=== PATIENT | male | born 1950 | race Caucasian/White ===

== ENCOUNTER 2016-12-12 07:59 | Observation (INO) | payer BC ==
[2016-12-12] MEDS ORDERED: Aspirin Low Dose CHEW TAB* 81 MG PO ONE (08:15)
[2016-12-12 08:44] LABS: Hematocrit 50 % (42-52); Hemoglobin 16.8 g/dl (14.0-18.0); Mean Corpuscular HGB Conc 34 g/dl (31-36); Mean Corpuscular Hemoglobin 30 pg (27-31); Mean Corpuscular Volume 89 fL (80-94); Mean Platelet Volume 9 um3 (7.4-10.4); Red Cell Distribution Width 14 % (10.5-15); White Blood Count 7.6 10^3/ul (3.5-10.8)
[2016-12-12 08:51] LABS: Add Diff/Slide Review? Slide Review Added; Comments Flag Yes
[2016-12-12 09:01] LABS: Albumin 4.3 g/dL (3.2-5.2); BUN/Creatinine Ratio 13.8 (8-20); Calcium 9.8 mg/dL (8.6-10.3); EGFR African American 103.6 (>60); EGFR Non-African American 80.5 (>60); Potassium 3.5 mmol/L (3.5-5.0); Total Bilirubin 0.5 mg/dL (0.2-1.0); Total Protein 7.3 g/dL (6.4-8.9)
--- NOTE | 2016-12-12 09:01 | RAD ---
INDICATION: Chest pain. COMPARISON: Comparison is made with prior chest x-ray study from April 02, 2015. TECHNIQUE: A portable view of the chest was obtained. FINDINGS: Cardiac and mediastinal contours appear to be within normal limits. The lungs are clear. No pleural effusion is seen. IMPRESSION: NO EVIDENCE FOR ACUTE DISEASE.
[2016-12-12] MEDS ORDERED: Acetaminophen TAB* 325 MG PO PRN (12:31)
[2016-12-12] MEDS ORDERED: Nicotine Inhaler* 10 MG AMP INH PRN (12:31)
[2016-12-12] MEDS ORDERED: Heparin VIAL(*) 5000 UNITS/ML VIAL (FIVE THOUSAND) SUBCUT SCH (14:00)
--- NOTE | 2016-12-12 14:38 | ED ---
Brandon Ricketts Matthew, scribed for Jonathan Higuera MD on 12/12/16 at 0854 . HPI Chest Pain - HPI Summary HPI Summary: A 66 y/o male presents to the ED with intermittent left sided chest pain since two days ago. The pain lasts for a few seconds then subsides. The pain is currently rated 0 in severity, does not radiate, and is described as dull. The pain is unaffected by movement. He denies back pain, numbness/tingling, SOB, and diaphoresis. He has a Hx of Atrial Flutter. He denies any associated symptoms. The patient states that he couldn't sleep last night due to anxiety. - History of Current Complaint Chief Complaint: EDChestPainROMI Time Seen by Provider: 12/12/16 08:15 Hx Obtained From: Patient Onset/Duration: Started Days Ago, Atraumatic, Resolved Timing: Intermittent, Lasting Seconds Initial Severity: Moderate Current Severity: None Pain Intensity: 0 Pain Scale Used: 0-10 Numeric Chest Pain Location: Left Lateral Chest Pain Radiates: No Character: Dull/Aching Aggravating Factor(s): Nothing Alleviating Factor(s): Spontaneous Resolution Associated Signs and Symptoms: Positive: Chest Pain. Negative: Numbness, Tingling, Shortness of Breath, Diaphoresis - Allergy/Home Medications Allergies/Adverse Reactions: Allergies Allergy/AdvReac Type Severity Reaction Status Date / Time No Known Allergies Allergy Verified 04/02/15 21:59 PMH/Surg Hx/FS Hx/Imm Hx Cardiovascular History: Reports: Hx Hypercholesterolemia, Hx Hypertension, Other Cardiovascular Problems/Disorders - Hx of Atrial Flutter Infectious Disease History: No Infectious Disease History: Denies: Traveled Outside the [place] in Last 30 Days - Family History Known Family History: Positive: Cardiac Disease - Social History Alcohol Use: None Substance Use Type: Reports: None Smoking Status (MU): Current Every Day Smoker Review of Systems Constitutional: Negative Negative: Fever, Chills, Skin Diaphoresis Eyes: Negative Negative: Erythema ENT: Negative Negative: Sore Throat Positive: Chest Pain Respiratory: Negative Negative: Shortness Of Breath Gastrointestinal: Negative Negative: Abdominal Pain, Vomiting, Nausea Genitourinary: Negative Negative: dysuria, hematuria Musculoskeletal: Negative Negative: Myalgia, Edema Skin: Negative Negative: Rash Neurological: Negative Psychological: Normal All Other Systems Reviewed And Are Negative: Yes Physical Exam Triage Information Reviewed: Yes Vital Signs On Initial Exam: Initial Vitals Temp Pulse Resp BP Pulse Ox 97.8 F 62 16 165/73 99 12/12/16 08:09 12/12/16 08:09 12/12/16 08:09 12/12/16 08:09 12/12/16 08:09 Vital Signs Reviewed: Yes Appearance: Positive: Well-Appearing, No Pain Distress Skin: Positive: Warm, Dry Head/Face: Positive: Other - Normocephalic; Atraumatic Dental: Negative: Cervical Lymphadenopathy Neck: Positive: Supple, No Lymphadenopathy, Other: - Musculoskeletal ROM normal neck; No JVD Respiratory/Lung Sounds: Positive: Breath Sounds Present, Other - Effort Normal. Negative: Rales, Rhonchi, Stridor, Tracheal Deviation, Wheezes Cardiovascular: Positive: RRR, Other - Heart sounds normal; Intact distal pulses ; The pedal pulses are 2+ and symmetric. Radial pulses are 2+ and symmetric.. Negative: Murmur Abdomen Description: Positive: Nontender, Soft, Other: - No Rebound. Negative: Distended, Guarding Bowel Sounds: Positive: Present Musculoskeletal: Positive: Other - no reproducible tenderness with chest palpation or arm ROM Neurological: Positive: Alert, Oriented to Person Place, Time Psychiatric: Positive: Affect/Mood Appropriate Diagnostics - Vital Signs Vital Signs Temp Pulse Resp BP Pulse Ox 12/12/16 08:13 65 11 99 12/12/16 08:12 165/73 12/12/16 08:09 97.8 F 62 16 165/73 99 - Laboratory Lab Results: Lab Results 12/12/16 12/12/16 12/12/16 Range/Units 08:20 08:20 08:20 WBC 7.6 (3.5-10.8) 10^3/ul RBC 5.60 H (4.0-5.4) 10^6/ul Hgb 16.8 (14.0-18.0) g/dl Hct 50 (42-52) % MCV 89 (80-94) fL MCH 30 (27-31) pg MCHC 34 (31-36) g/dl RDW 14 (10.5-15) % Plt Count 166 (150-450) 10^3/ul MPV 9 (7.4-10.4) um3 Neut % (Auto) 66.4 (38-83) % Lymph % (Auto) 22.8 L (25-47) % [place] % (Auto) 8.8 (1-9) % Eos % (Auto) 1.4 (0-6) % Baso % (Auto) 0.6 (0-2) % Absolute Neuts (auto) 5.0 (1.5-7.7) 10^3/ul Absolute Lymphs (auto) 1.7 (1.0-4.8) 10^3/ul Absolute Monos (auto) 0.7 (0-0.8) 10^3/ul Absolute Eos (auto) 0.1 (0-0.6) 10^3/ul Absolute Basos (auto) 0 (0-0.2) 10^3/ul Absolute Nucleated RBC 0 10^3/ul Nucleated RBC % 0 Sodium 135 (133-145) mmol/L Potassium 3.5 (3.5-5.0) mmol/L Chloride 102 (101-111) mmol/L Carbon Dioxide 27 (22-32) mmol/L Anion Gap 6 (2-11) mmol/L BUN 13 (6-24) mg/dL Creatinine 0.94 (0.67-1.17) mg/dL Est GFR ( Amer) 103.6 (>60) Est GFR (Non-Af Amer) 80.5 (>60) BUN/Creatinine Ratio 13.8 (8-20) Glucose 115 H (70-100) mg/dL Lactic Acid 1.0 (0.5-2.0) mmol/L Calcium 9.8 (8.6-10.3) mg/dL Total Bilirubin 0.50 (0.2-1.0) mg/dL AST 27 (13-39) U/L ALT 27 (7-52) U/L Alkaline Phosphatase 65 (34-104) U/L Troponin I 0.00 (<0.04) ng/mL Total Protein 7.3 (6.4-8.9) g/dL Albumin 4.3 (3.2-5.2) g/dL Globulin 3.0 (2-4) g/dL Albumin/Globulin Ratio 1.4 (1-3) Result Diagrams: 12/12/16 08:20 12/12/16 08:20 Lab Statement: Any lab studies that have been ordered have been reviewed, and results considered in the medical decision making process. - Radiology CXR Xray Interpretation: No Acute Changes - IMPRESSION: NO EVIDENCE FOR ACUTE DISEASE. Radiology Interpretation Completed By: Radiologist - EKG 08:03 Cardiac Rate: Bradycardia - 54 bpm EKG Rhythm: Sinus Rhythm EKG Interpretation: No STEMI Chest Pain Course/Dx - Course Assessment/Plan: A 66 y/o male presents to the ED with intermittent left sided chest pain since two days ago. The intermittent pain last for a few seconds then subsides. Labs were reviewed. CXR shows no acute disease. EKG shows sinus bradycardia at 54 bpm. Discussed the case with Dr. Santacruz and the patient will be admitted for observation. - Diagnoses Provider Diagnoses: CHEST PAIN,R/O ACS - Provider Notifications Discussed Care Of Patient With: Dr. Santacruz (Hospitalist) at 09:47 -- Notified of patient's history and will admit the patient into her services. Discharge - Discharge Plan Condition: Stable Disposition: ADMITTED TO [facility] The documentation as recorded by the Brandon sarkar Matthew accurately reflects the service I personally performed and the decisions made by me, Jonathan Higuera MD.
[2016-12-12 15:20] VITALS: BP 103/60
--- NOTE | 2016-12-12 17:20 | HP ---
CC: Dr. Kahlil Bedoya, phone number [phone] HISTORY AND PHYSICAL: DATE OF ADMISSION: 12/12/16 TIME OF EVALUATION: 12:10 p.m. PRIMARY CARE PROVIDER: Dr. Kahlil Bedoya, phone number [phone]. CHIEF COMPLAINT: Chest pain. HISTORY OF PRESENT ILLNESS: Mr. Berg is a 66-year-old male with a past medical history of hyperte nsion and tobacco abuse who presented to the emergency room with complaints of chest pain. He states he was in his usual state of health until 2 days ago when he had a very active day [employer] cleaning up his yard, lifting heavy things. He states that during the activity he felt wel l, but at night, he had left-sided chest pain very localized that he rates about 5/10 in intensity w ith no radiation, not associated with diaphoresis or dyspnea. He states that he was able to sleep, but in the middle of the night when he moved in bed, he would feel the pain. The next day, he was s till having episodes of pain, but they were very brief lasting from 3 to 5 seconds resolved by willem alexander and initially, he thought the pain was fairly musculoskeletal associated with exercise the day bef ore, but as the day went on, he became more concerned and after reading about risk factors for heart disease, he decided to come to the emergency room today. He says that he continues to have the same episodes lasting 3 to 5 seconds with no precipitating fac tors. He did not notice any specific movement that brings the pain on and he continues to have no o ther symptoms. He denies fever, chills, cough, or other complaints. PAST MEDICAL HISTORY: 1. Hypertension. 2. Tobacco abuse. MEDICATIONS: 1. Amlodipine 5 mg p.o. daily. 2. Atenolol 50 mg p.o. daily. 3. Hydrochlorothiazide 25 mg p.o. daily. 4. Multivitamin 1 tablet p.o. daily. 5. Potassium 1 tablet p.o. daily. ALLERGIES: No known drug allergies. FAMILY HISTORY: Reviewed and noncontributory. SOCIAL HISTORY: The patient has been a smoker for almost 50 years, sometimes up to 2 packs a day bu t now smoking 1 pack a day. He denies alcohol or drug use. Surrogate decision maker is his , Daniel Berg, phone number is [phone]. REVIEW OF SYSTEMS: A 14-point review of systems was performed and all other pertinent negative and positive findings are in the HPI. PHYSICAL EXAMINATION GENERAL: The patient is a pleasant gentleman sitting up in bed in no acute distress. VITAL SIGNS: Temperature 97.4, heart rate is 75, respiratory rate is 18, oxygen saturation is 99% o n room air, blood pressure is 133/62. CHEST: Breath sounds present bilaterally with no added sounds. CVS: Normal S1, S2. Regular rate and rhythm. ABDOMEN: Soft. Bowel sounds are present. EXTREMITIES: No edema. The patient has bilateral pulses in upper and lower extremities that are eq ual. NEUROLOGIC: He is alert, awake, and oriented x3. Able to move all 4 extremities. DIAGNOSTIC STUDIES/LAB DATA: The patient had a CBC that showed WBC of 7.6, hemoglobin 16.8, hemato crit of 50, platelets of 166 with 66% neutrophils. Chemistries showed a sodium of 135, potassium 3.5 , chloride of 102, bicarb of 27, BUN of 13, creatinine of 0.9, glucose of 116, lactic acid of 1, cesar cium of 9.8. LFTs are normal. Troponin was negative x2. Chest x-ray showed no evidence for active disease. EKG showed sinus bradycardia at 54 beats per minute with no ST-T changes. The only change from his prior one from 2014, at that time he had frequent PVCs. ASSESSMENT AND PLAN: Mr. Berg is a 66-year-old male with a past medical history of hypertension a nd tobacco abuse who presents to the emergency room with complaints of chest pain. 1. Chest pain: I suspect this is likely musculoskeletal in nature considering his history of the p ain starting after significant exertion during the day, but the pain is not reproducible on physical examination and he does have risk factor for coronary artery disease. The patient will be admitted as observation to rule out acute coronary syndrome and we are going to try to pursue exercise echo stress today. In the meantime, he is going to be continued on aspirin. 2. Hypertension: We are going to continue his antihypertensives. 3. Tobacco abuse: The patient states that he is ready to quit and is willing to quit cold turkey. Nicotine inhaler will be available if he wants to try it. 4. DVT prophylaxis: The patient has a score of 2 on the DVT Prophylaxis Risk Assessment Guide and he will be started on subcutaneous heparin. 5. Code status is full. TIME SPENT: Approximately 45 minutes was spent with the patient interview, medical records review, physical examination to complete this admission, more than half this time was spent [id number] wit h the patient and coordination of care. [id number]/[facility] #: [id number]
--- NOTE | 2016-12-13 02:31 | DS ---
CC: Dr. Kahlil Bedoya DISCHARGE SUMMARY: DATE OF ADMISSION: 12/12/16 DATE OF DISCHARGE: 12/12/16 PRIMARY CARE PROVIDER: Dr. Kahlil Bedoya. DISCHARGE DIAGNOSIS: Atypical chest pain, acute coronary syndrome ruled out, most likely musculoske letal in nature. SECONDARY DIAGNOSES: 1. Hypertension. 2. Tobacco abuse. MEDICATIONS: 1. Multivitamin 1 tablet p.o. daily. 2. Amlodipine 5 mg p.o. daily. 3. Potassium 1 tablet p.o. daily. 4. Hydrochlorothiazide 25 mg p.o. daily. 5. Atenolol 50 mg p.o. daily. NEW MEDICATIONS: 1. Acetaminophen 650 mg p.o. q.6 hours p.r.n. pain. 2. Nicotine inhaler 10 mg inhaled q.2 hours p.r.n. cravings. HOSPITAL COURSE: Mr. Berg is a 66-year-old male with a past medical history stated above who pres ented to the emergency room with complaints of chest pain as described in his HPI from earlier today . He had serial troponins that were negative. No significant arrhythmias on telemetry, and he underwe nt an exercise echo stress that showed no exercise-induced ischemia by EKG or echo at good workload and achieving more than 85% of the MPHR. Low risk. Cannot rule out atherosclerosis and Cardiology r ecommended continuation of aggressive lifestyle/risk factor modification. The patient states that he has been chest pain free since he returned from the stress test and he st ates he is very motivated to quit smoking. The patient's Wells score is 0 or predicts a low probability of PE, and considering his history of p ain that started after vigorous exercise outside, cleaning his yard and moving things, I believe hi s pain is likely musculoskeletal, although not reproducible on physical examination. The patient was advised that if he develops severe chest pain or any other concerning signs includin g, but not limited to palpitations, shortness of breath, diaphoresis, lightheadedness, he should ret urn to the emergency room for further evaluation despite his normal stress test. The patient and hi s verbalized understanding of the recommendations. The patient is medically stable for discharge at this time. DIET: Heart healthy diet. ACTIVITY: As tolerated. DISPOSITION: To home. STATUS WHILE IN THE HOSPITAL: Observation. If you need more information, please feel free to call me at [phone] or please obtain the full medical records. TIME SPENT: Approximately 65 minutes was spent to complete this admission and discharge. [id number]/[facility] #: [id number]
[2016-12-13] MEDS ORDERED: amLODIPine TAB* 5 MG PO SCH (09:00)
[2016-12-13] MEDS ORDERED: Hydrochlorothiazide TAB* 25 MG PO SCH (09:00)
[2016-12-13] MEDS ORDERED: Atenolol TAB* 50 MG PO SCH (09:00)
[2016-12-13] MEDS ORDERED: Aspirin EC Low Dose* 81 MG TAB.EC PO SCH (09:00)
== END 2016-12-12 16:30 | disposition home or self-care (01) ==
LOC: ED 07:59 → MEDTELE 09:56
PROVIDERS: ADMIT Internal Medicine; ATTEND Internal Medicine
DX: I10 Essential (primary) hypertension (principal); F17.210 Nicotine dependence, cigarettes, uncomplicated; R00.1 Bradycardia, unspecified; Z79.899 Other long term (current) drug therapy
CPT/HCPCS: 36415; 71010; 80053; 83605; 84484; 85025; 93005; 93306; 93350; 99285; 99406; A9270-GY; G0378; J1644